=== PATIENT | female | born 1995 | race African-American/Black ===

== ENCOUNTER 2021-11-14 14:05 | Emergency (ER) | payer MEDICAID ==
[~2021-11-14] VITALS: Ht 154.9 cm; Wt 66.4 kg
[~2021-11-14 14:05] MED LIST: ADVAIR IH; ALBUTEROL0.83 MG/ML IH; PREDNISONE20 MG PO; PULMICORT0.5 MG/21 IH
[2021-11-14 15:14] VITALS: BP 137/74; PULSE 89; TEMP 98.4
== END 2021-11-14 15:18 | disposition home or self-care (01) ==
LOC: COL.ER 14:05
DX: R05.9 Cough, unspecified (principal)
CPT/HCPCS: J0696

== ENCOUNTER 2023-09-17 12:16 | Emergency (ER) | payer SELFPAY ==
[~2023-09-17] VITALS: Ht 154.9 cm; Wt 70.5 kg
[2023-09-17 12:27] VITALS: TEMP 98.1
[2023-09-17] MEDS ORDERED: MOTRIN 800800 MG/TAB PO (14:21)
[2023-09-17 14:40] VITALS: BP 113/74; PULSE 75
== END 2023-09-17 14:40 | disposition home or self-care (01) ==
LOC: COL.ER 12:16
DX: M25.511 Pain in right shoulder (principal); M25.512 Pain in left shoulder; V89.2XXA Person injured in unspecified motor-vehicle accident, traffic, initial encounter; Y92.410 Unspecified street and highway as the place of occurrence of the external cause

== ENCOUNTER → 2023-10-20 | Outpatient (CLI) | payer MEDICAID ==
[~2023-10-20] MED LIST changes: +MOTRIN 800800 MG/TAB PO
== END ==
LOC: COL.RAD 07:20
DX: S43.499D Other sprain of unspecified shoulder joint, subsequent encounter (principal)